=== PATIENT | female | born 1995 | race Caucasian/White ===

== ENCOUNTER 2017-04-01 09:19 | Emergency (ER) | payer OTHER ==
[2017-04-01 09:25] VITALS: BP 122/66; PULSE 68; RESP 17; TEMP 97.4
--- NOTE | 2017-04-01 09:33 | ED ---
ENT HPI - General Chief complaint: ENT Stated complaint: EAR PAIN Time Seen by Provider: 04/01/17 09:26 Source: patient, RN notes reviewed, old records reviewed Mode of arrival: ambulatory Limitations: no limitations - History of Present Illness Initial comments: 22-year-old female does eat a chief complaint of left-sided ear pain for the past 5 days. Patient reports that she heard a popping sensation is concerned there may be a bug in her ear. Patient states that she's had no fever or chills. She reports that the pain is now starting to radiate towards her right ear and she steering popping and fullness. Patient states that she has not taken any medications [id number] at this time. She denies any history of frequent ear infections. Patient states that she is up-to-date on all childhood vaccinations. Denies a history of sick contacts. - Related Data Previous Rx's Medication Instructions Recorded Azithromycin [Zithromax Z-pack] 250 mg PO DIRECTED #6 tab 04/01/17 Allergies Allergy/AdvReac Type Severity Reaction Status Date / Time No Known Allergies Allergy Verified 05/28/14 03:26 Review of Systems ROS Statement: Those systems with pertinent positive or pertinent negative responses have been documented in the HPI. ROS Other: All systems not noted in ROS Statement are negative. Past Medical History Past Medical History: No Reported History Additional Past Medical History / Comment(s): Obstetric history: First was an elective termination. Second was a vaginal delivery in 2010. Third was a vaginal delivery in 2011. THis is her fourth . She has had care with ks since 16 weeks. O+, abs neg, Rub nonimmune, Hep B neg, HIV NR, RPR NR. normal 1hr GTT. normal anatomy US. GBS neg History of Any Multi-Drug Resistant Organisms: None Reported Past Surgical History: No Surgical Hx Reported Past Anesthesia/Blood Transfusion Reactions: No Reported Reaction Past Psychological History: Depression Smoking Status: Never smoker Past Alcohol Use History: None Reported Past Drug Use History: None Reported - Past Family History Father Family Medical History: Diabetes Mellitus General Exam - General Exam Comments Initial Comments: 19-year-old female. No acute distress. Limitations: no limitations General appearance: alert, in no apparent distress Head exam: Present: atraumatic, normocephalic, normal inspection Eye exam: Present: normal appearance, PERRL, EOMI. Absent: scleral icterus, conjunctival injection, periorbital swelling ENT exam: Present: normal exam, mucous membranes moist. Absent: TM's normal bilaterally (Mildly erythematous bilateral TMs. Evidence of fluid and bulging in the left TM. ) Neck exam: Present: normal inspection. Absent: tenderness, meningismus, lymphadenopathy Respiratory exam: Present: normal lung sounds bilaterally. Absent: respiratory distress, wheezes, rales, rhonchi, stridor Cardiovascular Exam: Present: regular rate, normal rhythm, normal heart sounds. Absent: systolic murmur, diastolic murmur, rubs, gallop, clicks GI/Abdominal exam: Present: soft, normal bowel sounds. Absent: distended, tenderness, guarding, rebound, rigid Extremities exam: Present: normal inspection, full ROM, normal capillary refill. Absent: tenderness, pedal edema, joint swelling, calf tenderness Back exam: Present: normal inspection Neurological exam: Present: alert, oriented X3, CN II-XII intact Psychiatric exam: Present: normal affect, normal mood Skin exam: Present: warm, dry, intact, normal color. Absent: rash Course Vital Signs 04/01/17 09:22 Temperature 97.4 F L Pulse Rate 68 Respiratory 17 Rate Blood Pressure 122/66 O2 Sat by Pulse 100 Oximetry Medical Decision Making - Medical Decision Making 22-year-old female does eat a chief complaint of left-sided ear pain for the past 5 days. Patient reports that she heard a popping sensation is concerned there may be a bug in her ear. Patient states that she's had no fever or chills. She reports that the pain is now starting to radiate towards her right ear and she steering popping and fullness. No evidence of foreign body within the ear. Patient does have some fluid collection behind the left TM in its bulging. Mildly erythematous and bilateral TMs. Patient will be discharged with azithromycin instructed to purchase a decongestant medication. Patient agrees to treatment plan will comply. Return parameters were discussed. Disposition Clinical Impression: Otitis media Disposition: HOME SELF-CARE Condition: Good Instructions: Earache (ED) Additional Instructions: Patient advised to purchase a decongestant medication such as Claritin-D or Mucinex DM. Complete her antibiotic prescription. Follow-up with primary care provider or ENT specialist if symptoms continue to persist. Prescriptions: Azithromycin [Zithromax Z-pack] 250 mg PO DIRECTED #6 tab Referrals: Deepika Monge MD [Primary Care Provider] - 1-2 days Time of Disposition: 09:32
== END 2017-04-01 09:36 | disposition home or self-care (01) ==
LOC: EC 09:19
DX: H66.93 Otitis media, unspecified, bilateral (principal)
CPT/HCPCS: 99283

== ENCOUNTER → 2017-07-28 | Outpatient (CLI) | payer OTHER ==
[2017-07-28 09:51] LABS: Basophils % (A) 1 %; CH 30.5; CHCM 34.3; Eosinophils # (A) 0.2 k/uL (0-0.7); Eosinophils % (A) 3 %; HCT 48.5 % (34.0-46.0); HDW 2.57; HGB 16.3 gm/dL (11.4-16.0); Luc # (Auto) 0.22; Luc % (Auto) 3; Lymphocytes # (A) 3.2 k/uL (1.0-4.8); Lymphocytes % (A) 47 %; MCHC 33.6 g/dL (31.0-37.0); MCV 89.3 fL (80.0-100.0); Mean Platelet Volume 7.3; Monocytes # (A) 0.3 k/uL (0-1.0); Monocytes % (A) 5 %; Neutrophils # (A) 2.9 k/uL (1.3-7.7); Neutrophils % (A) 42 %; RBC 5.44 m/uL (3.80-5.40); RDW 13.4 % (11.5-15.5); WBC 6.9 k/uL (3.8-10.6)
== END | disposition home or self-care (01) ==
LOC: LABPAT 09:16 → LABWHC1 09:16
PROVIDERS: ATTEND Obstetrics & Gynecology
DX: Z01.812 Encounter for preprocedural laboratory examination (principal)
CPT/HCPCS: 36415; 85025

== ENCOUNTER 2017-08-07 07:01 | Day surgery (SDC) | payer OTHER ==
[2017-08-04 12:11] VITALS: BMI 27.8
--- NOTE | 2017-08-06 16:55 | P.HPOB ---
History of Present Illness H&P Date: 08/06/17 Chief Complaint: Family Planning 22 year old present for laparoscopic tubal ligation. Review of Systems All systems: negative Constitutional: Denies chills, Denies fever Eyes: denies blurred vision, denies pain Ears, nose, mouth and throat: Denies headache, Denies sore throat Cardiovascular: Denies chest pain, Denies shortness of breath Respiratory: Denies cough Gastrointestinal: Denies abdominal pain, Denies diarrhea, Denies nausea, Denies vomiting Genitourinary: Denies dysuria, Denies hematuria Musculoskeletal: Denies myalgias Integumentary: Denies pruritus, Denies rash Neurological: Denies numbness, Denies weakness Psychiatric: Denies anxiety, Denies depression Endocrine: Denies fatigue, Denies weight change Past Medical History Additional Past Medical History / Comment(s): colitis History of Any Multi-Drug Resistant Organisms: None Reported Past Surgical History: No Surgical Hx Reported Additional Past Surgical History / Comment(s): wisdom teeth Past Anesthesia/Blood Transfusion Reactions: Motion Sickness Past Psychological History: No Psychological Hx Reported Smoking Status: Current every day smoker Past Alcohol Use History: None Reported Past Drug Use History: None Reported - Past Family History Father Family Medical History: Diabetes Mellitus Medications and Allergies Home Medications Medication Instructions Recorded Confirmed Type No Known Home Medications [No 08/04/17 08/04/17 History Known Home Medications] Allergies Allergy/AdvReac Type Severity Reaction Status Date / Time No Known Allergies Allergy Verified 08/04/17 12:03 Exam Osteopathic Statement: *. No significant issues noted on an osteopathic structural exam other than those noted in the History and Physical/Consult. HEart: RRR Lungs: CTAB Abdomen: soft, nontender Extremeties: neg дмитрий's Assessment and Plan (1) Family planning Status: Acute Code(s): Z30.09 - ENCOUNTER FOR OTH GENERAL CNSL AND ADVICE ON CONTRACEPTION SNOMED Code(s): 22226288 Plan: 1. laparoscopic tubal ligation
[~2017-08-07 07:01] MED LIST: DEXAMETHASONE SOD PHOSPHATE 10 MG/ML 1 ML VIAL IV ONE; LIDOCAINE 1% 20 ML VIAL (10MG/ML) FOR IV START INTRADERMA PRN; ONDANSETRON 4 MG/2 ML VIAL IVP ONE; Pre Op ABX Message 1 EACH MISC MISCELLANE ONE; SCOPOLAMINE 1.5MG/72HR PATCH TRANSDERM ONE
[2017-08-07] MEDS: LACTATED RINGERS 1,000 ML IV SCH ×2 (07:28→12:16)
[2017-08-07] MEDS ORDERED: LIDOCAINE 1% INJ 10MG/ML (20 ML MDV) ONE (07:55)
[2017-08-07] MEDS ORDERED: GLYCOPYRROLATE 0.2 MG/ML 2 ML VIAL ONE (07:55)
[2017-08-07] MEDS ORDERED: PROPOFOL 10 MG/ML 20 ML VIAL IV ONE (07:55)
[2017-08-07] MEDS ORDERED: MIDAZOLAM 2 MG/2 ML VIAL ONE (07:55)
[2017-08-07] MEDS ORDERED: SUCCINYLCHOLINE CHLORIDE 100 MG/5 ML SYR IV ONE (07:55)
[2017-08-07] MEDS ORDERED: KETOROLAC 30 MG/ML 1 ML VIAL ONE (07:55)
[2017-08-07] MEDS ORDERED: ROCURONIUM BROMIDE 10 MG/ML 10 ML VIAL IV ONE (07:55)
[2017-08-07] MEDS ORDERED: fentaNYL (PF) 50 MCG/ML 2 ML AMP ONE (07:55)
[2017-08-07] MEDS ORDERED: NEOSTIGMINE 1 MG/ML 10 ML VIAL ONE (07:55)
[2017-08-07] MEDS ORDERED: BUPIVACAINE (PF) 0.25% 30 ML VIAL SQ ONE ×2 (08:19→08:33)
--- NOTE | 2017-08-07 08:45 | P.OP ---
Date of Procedure: 08/07/17 Preoperative Diagnosis: 1. Family Planning Postoperative Diagnosis: 1. Family Planning Procedure(s) Performed: Laparoscopic tubal ligation Anesthesia: ISRAEL Surgeon: Luna Scott Estimated Blood Loss (ml): 3 IV fluids (ml): 800 Urine output (ml): 5 Pathology: none sent Condition: stable Disposition: PACU Operative Findings: normal uterus, tubes and ovaries. The uterus was very spongy when pushed with a probe. Description of Procedure: Patient was taken to the operating room where general anesthesia was obtained without difficulty. She was prepped and draped in normal sterile fashion in the dorsal lithotomy position, legs placed in the Fab stirrups. Bladder drained of all urine. Tryon speculum placed in the vagina and the anterior lip the cervix was grasped with single-tooth tenaculum. The uterus is sounded to 10 cm and the kroner manipulator was placed. Attention was then turned to the abdomen and gloves were changed. A 10 mm infraumbilical incision was made the scalpel and 10 mm optical trocar was placed under direct visualization. A 5 mm suprapubic Incision was made and a 5 mm optical trocar was placed under direct visualization. Survey of the pelvis revealed normal uterus, tubes and ovaries. There was some pelvic congestion of the vessels and the left broad ligament and in the right broad ligament down by the right uterosacral ligaments. Also when I touched the uterus with the probe was very spongy. The left fallopian tube was grasped with a Kleppinger and fulgurated 2-3 cm on this side in the ampullar portion. The right fallopian tube was grasped with a Kleppinger and fulgurated 2-3 cm in the ampullar portion. All instruments were then removed from the abdomen and vagina. The 10 mm infraumbilical incision was closed with 0 Vicryl and the fascial layer and then 4-0 Vicryl in a subcuticular fashion. The 5 mm incision was closed with 4-0 Vicryl in a subcuticular fashion. Patient tolerated procedure well, sponge and instrument counts correct 2 and she was taken to recovery room in stable condition.
[2017-08-07 08:57] VITALS: TEMP 97
[2017-08-07] MEDS: HYDROmorphone 0.5 MG/0.5 ML SYRINGE IVP PRN ×2 (08:58→09:04)
[2017-08-07] MEDS ORDERED: LACTATED RINGERS 1,000 ML IV ONE ×2 (09:10)
[2017-08-07] MEDS ORDERED: ONDANSETRON 4 MG/2 ML VIAL IVP ONE (10:23)
[2017-08-07] MEDS ORDERED: PROMETHAZINE INJ 25 MG/ML 1 ML VIAL IVPB ONE (10:41)
[2017-08-07 11:42] VITALS: RESP 18
[2017-08-07 12:19] VITALS: BP 99/54; PULSE 98
== END 2017-08-07 12:48 | disposition home or self-care (01) ==
LOC: OR 07:01
PROVIDERS: ATTEND Obstetrics & Gynecology
DX: Z30.2 Encounter for sterilization (principal); F17.200 Nicotine dependence, unspecified, uncomplicated; Z83.3 Family history of diabetes mellitus
CPT/HCPCS: 58670; 81025; J2250; J1100; J2550; J2710; J2405; J2001; J3010; J1885; J0330; J2704; J1170

== ENCOUNTER 2020-05-31 09:42 | Day surgery (SDC) | payer OTHER ==
[2020-05-25 17:27] VITALS: BMI 28.8
[~2020-05-31 09:42] MED LIST changes: -DEXAMETHASONE SOD PHOSPHATE 10 MG/ML 1 ML VIAL IV ONE; +LACTATED RINGERS 1,000 ML IV SCH; -LIDOCAINE 1% 20 ML VIAL (10MG/ML) FOR IV START INTRADERMA PRN; -ONDANSETRON 4 MG/2 ML VIAL IVP ONE; -Pre Op ABX Message 1 EACH MISC MISCELLANE ONE; -SCOPOLAMINE 1.5MG/72HR PATCH TRANSDERM ONE
[2020-05-31 10:43] VITALS: TEMP 98.2
[2020-05-31] MEDS ORDERED: LIDOCAINE 1% (10MG/ML) FOR IV START INTRADERMA ONE (10:43)
--- NOTE | 2020-05-31 10:50 | P.GSHP ---
History of Present Illness H&P Date: 05/31/20 Chief Complaint: Diarrhea This a 24-year-old female presents today for colonoscopy. She's had issues with diarrhea. Past Medical History Past Medical History: GI Bleed Additional Past Medical History / Comment(s): Yeast infection, using vaginal cream. Bloody stools History of Any Multi-Drug Resistant Organisms: None Reported Past Surgical History: Tubal Ligation Past Anesthesia/Blood Transfusion Reactions: Motion Sickness, Postoperative Nausea & Vomiting (PONV) Smoking Status: Current every day smoker - Past Family History Father Family Medical History: Diabetes Mellitus Medications and Allergies Home Medications Medication Instructions Recorded Confirmed Type Acetaminophen [Tylenol Extra 1,000 mg PO DIRECTED PRN 05/25/20 05/25/20 History Strength] Loratadine [Claritin] 10 mg PO DAILY 05/25/20 05/25/20 History Triamcinolone 0.025% Cream 1 applic TOPICAL QID PRN 05/25/20 05/25/20 History [Kenalog 0.025% Cream] Allergies Allergy/AdvReac Type Severity Reaction Status Date / Time No Known Allergies Allergy Verified 05/31/20 10:36 Surgical - Exam Vital Signs Temp Pulse Resp BP Pulse Ox 98.2 F 92 16 117/68 98 05/31/20 10:41 05/31/20 10:41 05/31/20 10:41 05/31/20 10:41 05/31/20 10:41 - General well developed, well nourished, no distress - Eyes PERRL - ENT normal pinna - Neck no masses - Respiratory normal expansion - Cardiovascular Rhythm: regular - Abdomen Abdomen: soft, non tender Assessment and Plan Assessment: Diarrhea. We'll perform colonoscopy.
[2020-05-31] MEDS ORDERED: PROPOFOL 10 MG/ML 20 ML VIAL IV ONE (10:56)
--- NOTE | 2020-05-31 11:13 | P.OP ---
Date of Procedure: 05/31/20 Preoperative Diagnosis: Diarrhea Postoperative Diagnosis: Normal colonoscopy Procedure(s) Performed: Colonoscopy Anesthesia: MAC Surgeon: Dawit Rodrigues Pathology: other (Rectum) Condition: stable Disposition: PACU Description of Procedure: The patient's placed on the endoscopy table in the lateral position she received IV sedation. Digital rectal exam was performed which revealed no abnormalities. Flexible coloscopy was then placed patient anus passed rotator entire colon. The ileocecal valve was visually. The cecum, ascending and transverse colon appeared normal. Descending and; appeared normal. Scope was then brought back the rectum and this appeared normal. A random rectal biopsy was performed with a cold forcep due to the patient's symptoms diarrhea. The scope was withdrawn for patient.
[2020-05-31 11:46] VITALS: BP 93/54; PULSE 89; RESP 18
== END 2020-05-31 12:00 | disposition home or self-care (01) ==
LOC: ORWHC2ENDO 09:42
PROVIDERS: ATTEND Surgery
DX: R19.7 Diarrhea, unspecified (principal); F17.200 Nicotine dependence, unspecified, uncomplicated; Z98.51 Tubal ligation status; Z83.3 Family history of diabetes mellitus; Z79.899 Other long term (current) drug therapy
CPT/HCPCS: 81025; 88305; 45380; J2704

== ENCOUNTER → 2020-06-06 | Outpatient (CLI) | payer OTHER ==
--- NOTE | 2020-06-06 10:13 | US ---
EXAMINATION TYPE: US pelvic complete DATE OF EXAM: 06/06/2020 COMPARISON: NONE CLINICAL HISTORY: K92.1 Blood in stool, R10.12 left upper quadrant. TECHNIQUE: . Transabdominal sonographic images of the pelvis were acquired. Date of LMP: April EXAM MEASUREMENTS: Uterus: 9.0 x 4.7 x 5.5 cm Endometrial Stripe: 1.1 cm Right Ovary: 2.3 x 1.6 x 1.8 cm Left Ovary: 3.0 x 2.0 x 1.9 cm 1. Uterus: Anteverted wnl 2. Endometrium: wnl 3. Right Ovary: wnl 4. Left Ovary: wnl 5. Bilateral Adnexa: wnl 6. Posterior cul-de-sac: wnl IMPRESSION: 1. No suspicious acute changes pelvic ultrasound
--- NOTE | 2020-06-06 13:59 | US ---
EXAMINATION TYPE: US abdomen complete DATE OF EXAM: 06/06/2020 COMPARISON: NONE CLINICAL HISTORY: K92.1 Blood in stool, R10.12 left upper quadrant. EXAM MEASUREMENTS: Liver Length: 12.7 cm Gallbladder Wall: 0.2 cm CBD: 0.5 cm Spleen: 9.3 cm Right Kidney: 10.2 x 3.5 x 4.3 cm Left Kidney: 10.5 x 4.3 x 3.9 cm Pancreas: Obscured by bowel gas Liver: wnl Gallbladder: wnl Evidence for sonographic Jamil's sign: No CBD: wnl Spleen: Granulomas visualized Right Kidney: No hydronephrosis. Cystic area lower pole measuring 1.1 x 1.0 x 1.2 cm Left Kidney: No hydronephrosis or masses seen Upper IVC: wnl Abd Aorta: wnl IMPRESSION: 1. Right renal cyst
== END | disposition home or self-care (01) ==
LOC: RADUSWWP 08:50
PROVIDERS: ATTEND Family Medicine
DX: N28.1 Cyst of kidney, acquired (principal); N94.10 Unspecified dyspareunia; N93.0 Postcoital and contact bleeding; K92.1 Melena; R10.12 Left upper quadrant pain
CPT/HCPCS: 76700; 76856

== ENCOUNTER → 2022-01-02 | Outpatient (CLI) | payer OTHER ==
--- NOTE | 2022-01-02 16:37 | CONS ---
CONSULTATION DATE OF SERVICE: 01/02/2022. 26-year-old lady has been evaluated in [facility] for possible obstructive sleep apnea-hypopnea syndrome. HISTORY OF PRESENT ILLNESS/SLEEP WAKE EVALUATION: SLEEP SCHEDULE: The patient usual sleep schedule from 11:00 pm/3:00 am until 7:00 am-noon on weekdays and from 10:00 am to noon on weekends. FALLING ASLEEP: She does have problems with falling asleep, although no TV in bedroom. DURING SLEEP: She snores and wakes up from sleep 2 times with nocturia. Positive history of restless leg symptoms and panic attacks. No history of hypnagogic hallucinations, sleep paralysis or cataplexy. DURING THE DAY/SLEEP WAKE EVALUATION: During the day, patient takes a nap around 2:00 pm. [place] Sleepiness Scale is 6. In the morning after sleep, patient wakes up tired, has problems with memory, concentration, irritability, depression, anxiety, sexual dysfunction. PAST MEDICAL HISTORY: Positive for panic attack, anxiety. PAST SURGICAL HISTORY: Tubal ligation. MEDICATIONS: Fluoxetine 20 mg once a day, 1 mg once a day. SOCIAL HISTORY: Positive for smoking up to 10 cigarettes a day. Alcohol consumption occasional. FAMILY HISTORY: Arthritis, sleep apnea, diabetes, thyroid problems. REVIEW OF SYSTEMS: Awakenings from sleep, snoring, tiredness and sleepiness during the day. PHYSICAL EXAMINATION: GENERAL: lady without distress. BP 111/72, HR 94, RR 16, height 5 feet and 6 inches, weight 170.6 pounds, body mass index 27.4. Neck 14-1/2 inches in circumference. Temperature 97.3, oxygen saturation at room air 95%. Oropharynx: Low position of soft palate, Mallampati 2-3. NECK 14-1/2 inches in circumference. Neck: Supple, no JVD. Thyroid is not palpable. LUNGS: Clear to percussion and to auscultation. Good air exchange. No wheezing or rhonchi. HEART: S1, S2 regular. No murmurs, gallops, or rubs. ABDOMEN: Soft and nontender. Bowel sounds are present. No organomegaly appreciated. EXTREMITIES: No clubbing or cyanosis. ACADEMIC RECORDS SPECIALIST: Awake, alert, and oriented X3. Cranial nerves 2 to 7 intact. There is no fasciculation or atrophy. noted. No focal deficits observed. IMPRESSION: 1. Snoring, multiple awakenings from sleep with nocturia, tiredness and sleepiness during the day with difficulties to concentrate and memory problems, possible obstructive sleep apnea-hypopnea syndrome. 2. History of restless leg symptoms. 3. Anxiety. 4. History of panic attacks. 5. History of nightmares in the past. PLAN: 1. Polysomnography for evaluation of patient's breathing during sleep. 2. CPAP/BiPAP titration if sleep study confirms obstructive sleep apnea-hypopnea syndrome. 3. Preferable position during sleep on the side. 4. No driving if patient feels any sleepiness. 5. I will see patient for follow up visit to explain results of testing and following plan. Thank you very much for referring this patient for consultation. Sincerely, Colby Duron MD, PhD, FAASM Diplomat of [place] [employer] Sleep Medicine Board of [place] [employer] [facility] [place] [employer] MMODL / [place]: [id number] /
== END ==
LOC: SLEEP 14:14
PROVIDERS: ATTEND Internal Medicine
DX: G47.10 Hypersomnia, unspecified (principal); R06.83 Snoring; F41.9 Anxiety disorder, unspecified; F41.0 Panic disorder [episodic paroxysmal anxiety]; F17.210 Nicotine dependence, cigarettes, uncomplicated; R35.1 Nocturia; G25.81 Restless legs syndrome
CPT/HCPCS: 99211

== ENCOUNTER → 2023-04-27 | Outpatient (CLI) | payer OTHER ==
--- NOTE | 2023-04-27 10:57 | USB ---
Reason for Exam: Clinical finding. Technique: Method: Targeted. Patient Position: Supine. Findings: The whole breast of both breasts, the axilla of both breasts and the retroareolar of both breasts were scanned. Imaged: Ultrasound imaging of: All 4 quadrants, the retroareolar region and axilla. No evidence for organizing fluid collection or mass. Overall Assessment: Negative, BI-RAD 1 Management: Screening Mammogram of both breasts at age 39. Clinical management for breast pain. A clinical breast exam by your physician is recommended on an annual basis and results should be correlated with mammographic findings. This exam should not preclude additional follow-up of suspicious palpable abnormalities. Results were given to the patient verbally at the time of exam. Electronically signed and approved by: Collin Amin DO
== END | disposition home or self-care (01) ==
LOC: RADUSWWP 10:27
PROVIDERS: ATTEND Family Medicine
DX: N64.4 Mastodynia (principal); N64.59 Other signs and symptoms in breast

== ENCOUNTER → 2024-06-20 | Outpatient (CLI) | payer OTHER ==
--- NOTE | 2024-06-20 18:04 | XR ---
EXAMINATION TYPE: XR shoulder complete LT DATE OF EXAM: 06/20/2024 5:51 PM CLINICAL INDICATION: Female, 28 years old with history of S46.912A, S13.4XXA, R20.9; [facility] COMPARISON: TECHNIQUE: XR shoulder complete LT; examined in AP, internally rotated and scapular Y projections. FINDINGS: No evidence of acute osseous pathology, joint dislocation, or soft tissue swelling. The remaining po rtions of the visualized chest are unremarkable. Mild degeneration changes of the acromion and dista l clavicle. IMPRESSION: No acute osseous pathology. [facility], , 06/20/2024 6:02 PM
--- NOTE | 2024-06-20 18:04 | XR ---
EXAMINATION TYPE: XR cervical spine comp DATE OF EXAM: 06/20/2024 5:51 PM CLINICAL INDICATION: Female, 28 years old with history of S46.912A, S13.4XXA, R20.9; [facility] COMPARISON: TECHNIQUE: The cervical spine was imaged in frontal, lateral, odontoid and bilateral oblique. FINDINGS: The osseous structures show normal alignment without evidence of an acute fracture. No significant ve rtebral body osteophytes or facet joint arthropathy. The intervertebral disk spaces are preserved. Pe dicles are intact. Soft tissues are within normal limits. The odontoid appears intact. IMPRESSION: No fracture or dislocation. [facility], , 06/20/2024 6:01 PM
== END | disposition home or self-care (01) ==
LOC: RADXRMAIN 17:27
PROVIDERS: ATTEND Emergency Medicine
DX: S46.912A Strain of unspecified muscle, fascia and tendon at shoulder and upper arm level, left arm, initial encounter (principal); S13.4XXA Sprain of ligaments of cervical spine, initial encounter; R20.9 Unspecified disturbances of skin sensation
CPT/HCPCS: 72050

== ENCOUNTER → 2024-07-16 | Outpatient (CLI) | payer OTHER ==
--- NOTE | 2024-07-17 21:21 | MR ---
EXAMINATION TYPE: MRI left shoulder without IV contrast DATE OF EXAM: 07/16/2024 COMPARISON: 06/20/2024 HISTORY: Left shoulder pain since 06-18-2024 lifting injury TECHNIQUE: Multiplanar, multisequence imaging of the left shoulder is performed without contrast. FINDINGS: Rotator Cuff: Supraspinatus, infraspinatus, subscapularis and teres minor tendons are intact. No sign ificant rotator cuff muscle atrophy or edema. Acromioclavicular Joint: Alignment is intact. No significant joint effusion or degenerative changes. Glenohumeral Joint: 9 mm of posterior humeral head subluxation. No focal chondral defects or joint ef fusion. No displaced labral tear. Biceps Tendon: The long head of biceps is in normal location within bicipital groove. Bone marrow signal: No focal abnormal marrow signal is appreciated. Other: Trace fluid in the subacromial/subdeltoid bursa. IMPRESSION: 1. Intact rotator cuff. 2. Trace fluid in the subacromial/subdeltoid bursa. 3. Mild posterior humeral head subluxation. [facility], , 07/17/2024 9:18 PM
== END | disposition home or self-care (01) ==
LOC: RADMRIMAIN 08:56
PROVIDERS: ATTEND Emergency Medicine

== ENCOUNTER → 2025-03-22 | Outpatient (CLI) | payer OTHER ==
[2025-03-22 08:38] VITALS: BP 100/71; PULSE 79; RESP 14
--- NOTE | 2025-03-22 16:09 | P.PAINPG ---
Objective - Vital Signs Vital signs: Intake & Output 03/21/25 03/22/25 03/22/25 18:59 06:59 18:59 Weight 87.543 kg PQRS Measure Charge Sheet Comment: HISTORY OF PRESENT ILLNESS: A 29 yr old female as a referral from Dr Cee presents today w severe and chronic neck pain> 3 mo secondary to radiculopathy, spondylosis and facet arthropathy without myelopathy for evaluation. Pt states pain level is provoked at 2-6 /10 in intensity, constant, localized in the mid to lower cervical spine, predominantly axial, sharp/ tingly in character w occasional shooting pain towards the BLUEs. Pain is provoked by rotation. Pain is alleviated by PT x 6 wks which ended in Nov 2024, physician guided home exercises 4-5 times weekly since Nov 2024, medications, topical, repositioning and rest . Cervical disability score at 22. PMH: OA, GI Bleed PSH: Colonoscopy (2019), Tubal Ligation SH: Daily tobacco use, Occ ETOH use, No illicit drug use FH: Fa- DM All: See list Medications include Neurontin, Tyl, Ibu, BioFreeze REVIEW OF ORGAN SYSTEMS: CONSTITUTIONAL: No fevers or chills. No recent weight loss. NEUROLOGICAL: + numbness and tingling along the distal extremities. No seizure disorders or headaches. MUSCULOSKELETAL: + pain PSYCHIATRIC: Denies current depression or suicidal thoughts. Physical Examinations : Constitutional : Cooperative , not in acute distress . Neurologic : Cranial nerve II to XII intact. No focal neurological deficits. Psychiatric : alert & oriented x 3. Matching mood & appropriate affect. Judgment & insight intact. Musculoskeletal : Cervical Spine Motor strength in the deltoid and biceps: Normal right side. Normal Left side Motor strength biceps and the wrist extensors: Normal right side . Normal left side Motor strength in the triceps muscle: Normal right side. Normal left side Deep tendon reflexes: Normal at the biceps. Normal at Brachioradialis. Normal at triceps Vertebral body tenderness to deep palpation over C5 Cervical facet loading test: positive Spurling test: positive bilaterally Neck distraction test: positive BL C5- C6 Erin sign: positive bilaterally Lumbar spine Motor strength lower extremities ,thigh and legs 5/5 Right side , 5/5 Left side Deep tendon reflexes : Normal Knee Jerk. Normal Ankle Jerk Vertebral body tenderness over Garcia Test positive Lumbar facet Loading Test: positive Right / positive Left Range of motion of the lumbar spine Flexion 30 degrees, extension 10 degrees Straight Leg Raise test: Left/ Right positive at degrees Esperanza test: positive right / positive left. Severe tenderness over the Sacroiliac joint on the Right / Left sides Gaenslen test: positive bilaterally Seated flexion test: positive bilaterally. Sacral spine : Severe tenderness over the Sacroiliac joint: right side / left side Range of motion: Flexion of the lumbar spine <60 degrees Range of motion: Extension of the lumbar spine <20 degrees Gaenslen's Test positive Esperanza test: positive right side / left side Thigh Thrust Test Sacral Thrust Test Imaging: MRI non contrast cervical spine from 02/10/25 Assessment/ Plan : C3-C4/ C4-C5 anterolisthesis, C4-C6 spondylosis Recommendation of JAVAN C5-C6 #1. Risks, benefits of procedure discussed and patient verbalized understanding. Admits to anti- coagulant use or medical history of diabetes. Protocol for discontinuation/ continuation of medications diego procedure discussed. All questions answered. I have spent greater than 30 minutes on patient care today. Dr Prater was available by phone for the evaluation of this patient. The time was used to review the medical records including relevant urine studies and Prescription history (MAPs), review of the available imaging, evaluation and examination of the patient, coordination of care with the medical staff and if applicable referring physicians, as well as creation of the medical record - Pain Location Neck Pharmacological Interventions: Medication PQRS Narrative: Smoking Status Never smoker Home Medications: Ambulatory Orders Acetaminophen [Tylenol Extra Strength] 1,000 mg PO DIRECTED PRN 05/25/20 Loratadine [Claritin] 10 mg PO DAILY 05/25/20 Triamcinolone 0.025% Cream [Kenalog 0.025% Cream] 1 applic TOPICAL QID PRN 05/25/20 diazePAM [Valium] 10 mg PO DAILY 1 Days #1 tab 03/22/25 Controlled Substance Measures - Controlled Substance Measures Is patient prescribed a controlled substance at discharge?: Yes When asked, does pt state using other controlled substances?: No If prescribed controlled substance>3 days was MAPS reviewed?: Prescribed <3 Days
== END ==
LOC: PNWHC3 08:15
PROVIDERS: ATTEND Specialist
DX: M47.22 Other spondylosis with radiculopathy, cervical region (principal); M43.12 Spondylolisthesis, cervical region; F12.90 Cannabis use, unspecified, uncomplicated
CPT/HCPCS: 99202